=== PATIENT | female | born 1985 | race African-American/Black ===

== ENCOUNTER 2021-12-21 15:59 | Emergency (ER) | payer MEDICAID ==
[~2021-12-21] VITALS: Ht 157.5 cm; Wt 77.3 kg
[2021-12-21 16:05] VITALS: TEMP 98.2
[2021-12-21 17:53] VITALS: BP 105/76; PULSE 63
== END 2021-12-21 17:53 | disposition home or self-care (01) ==
LOC: COL.ER 15:59
DX: Z32.02 Encounter for pregnancy test, result negative (principal); Z28.310 Unvaccinated for COVID-19

== ENCOUNTER 2022-02-18 16:06 | Emergency (ER) | payer MEDICAID ==
[~2022-02-18] VITALS: Ht 157.5 cm; Wt 77.3 kg
[2022-02-18 16:39] VITALS: TEMP 98.2
[2022-02-18 17:08] LABS: COLLECTION METHOD CLEAN CATCH
[2022-02-18 17:09] LABS: BASO % 0.5 % (0.0-2.0); EOS # 0.1 K/mm3 (0.0-0.7); EOS % 3.8 % (0.0-4.0); GRAN # 1.5 K/mm3 (1.4-6.5); GRAN % 39.6 % (42.2-75.2); HEMATOCRIT 38.1 % (37.0-47.0); HEMOGLOBIN 11.9 g/dl (12.5-16.0); LYMPH # 1.8 K/mm3 (1.2-3.4); LYMPH % 48.8 % (20.0-51.0); MEAN CELL VOLUME 87 fl (80.0-100.0); MEAN CORPUSCULAR HEMOGLOBIN 27 pg (27-31); MEAN CORPUSCULAR HGB CONC 31 g/dl (33.0-37.0); MEAN PLATELET VOLUME 11.4 fl (7.4-10.4); MONO # 0.3 K/mm3 (0.1-0.6); MONO % 7.3 % (1.7-9.3); PLATELET COUNT 176 K/mm3 (130-400); RED BLOOD COUNT 4.39 M/mm3 (4.10-5.30); REDCELL DISTRIBUTION WIDTH-CV 13.2 % (11.5-14.5)
[2022-02-18 17:21] LABS: MUCOUS Present (NOT PRESENT); PH 5 (5-8); URINE APPEARANCE Hazy (CLEAR/HAZY); URINE BACTERIA None Seen /hpf (NONE SEEN); URINE BILIRUBIN Negative (NEGATIVE); URINE BLOOD Negative (NEGATIVE); URINE COLOR Yellow (YELLOW); URINE GLUCOSE Negative (NEGATIVE); URINE KETONE Negative (NEGATIVE); URINE LEUKOCYTE ESTERASE Negative (NEGATIVE); URINE NITRATE Negative (NEGATIVE); URINE PROTEIN(semi-quant) 1+ (NEGATIVE); URINE RBC 0-2 /hpf (0-2); URINE UROBILINOGEN Negative (NEGATIVE)
[2022-02-18 17:25] LABS: ALBUMIN 4.1 gm/dL (3.5-5.0); BILIRUBIN,TOTAL 0.4 mg/dL (0.2-1.2); CALCIUM 8.7 mg/dL (8.4-10.2); CREATININE, serum 1.09 mg/dL (0.57-1.11); POTASSIUM 3.8 mmol/L (3.5-4.5); TOTAL PROTEIN 7.2 gm/dL (6.2-8.1)
[2022-02-18] MEDS ORDERED: ZOFRAN ODT4 MG PO (17:27)
[2022-02-18 17:43] VITALS: BP 114/72; PULSE 60
== END 2022-02-18 17:43 | disposition home or self-care (01) ==
LOC: COL.ER 16:06
PROVIDERS: Nurse Practitioner Primary Care
DX: U07.1 COVID-19 (principal); Z28.310 Unvaccinated for COVID-19